=== PATIENT | male | born 1955 | race Hispanic/Latino ===

== ENCOUNTER 2018-11-05 07:57 | Day surgery (SDC) | payer OTHER ==
[~2018-11-05] VITALS: Ht 175.3 cm; Wt 127.0 kg
[~2018-11-05 07:57] MED LIST: SODIUM CHLORIDE 0.9% 1000ML 1,000 ML IV ONE
[2018-11-05 09:55] VITALS: BP 142/80
[2018-11-05] MEDS ORDERED: WARF7.5T49 PO (10:30)
[2018-11-05] MEDS ORDERED: ATOR40TA71 PO (10:30)
[2018-11-05] MEDS ORDERED: ASPI-1197 PO (10:30)
[2018-11-05] MEDS ORDERED: UBID100C10 PO (10:46)
[2018-11-05] MEDS ORDERED: AMLO10TA7 PO (10:46)
[2018-11-05] MEDS ORDERED: MAGN500C15 PO (10:46)
[2018-11-05] MEDS ORDERED: OMEGA 3 (10:46)
[2018-11-05] MEDS ORDERED: GLUCOSAMINE PO (10:46)
[2018-11-05] MEDS ORDERED: ERGO2000 PO (10:46)
[2018-11-05] MEDS ORDERED: TURM500C9 PO (10:46)
[2018-11-05] MEDS ORDERED: VITAMIN C PO (10:46)
[2018-11-05] MEDS ORDERED: METF-446 PO (10:46)
[2018-11-05] MEDS ORDERED: MULT1CAP32 PO (10:46)
[2018-11-05] MEDS ORDERED: OZEMPIC SQ (10:46)
[2018-11-05] MEDS ORDERED: LISI40TA4 PO (10:46)
[2018-11-05] MEDS ORDERED: CARV25TA PO (10:46)
[2018-11-05] MEDS ORDERED: POTA99TA21 PO (10:46)
[2018-11-05] MEDS ORDERED: PROPOFOL 10 MG/ML 20ML VIAL IV ONE (11:48)
[2018-11-05 12:15] VITALS: BP 120/80
[2018-11-05 12:20] VITALS: BP 137/83
--- NOTE | 2018-11-05 12:50 | NUR ---
INSTRUCTED PATIENT AND PATIENT'S DESIGNATED DIRECTOR OF STRATEGIC MARKETING TO RESUME WARFARIN TOMORROW. BOTH VERBALIZED UNDERSTANDING.
== END 2018-11-05 13:50 | disposition home or self-care (01) ==
LOC: ENDO 07:57 → DAH 07:57 → ENDO 13:50
PROVIDERS: ATTEND Internal Medicine
DX: K62.1 Rectal polyp (principal); K57.30 Diverticulosis of large intestine without perforation or abscess without bleeding; K64.0 First degree hemorrhoids; K21.0 Gastro-esophageal reflux disease with esophagitis; K31.89 Other diseases of stomach and duodenum; I10 Essential (primary) hypertension; I25.10 Atherosclerotic heart disease of native coronary artery without angina pectoris; I48.91 Unspecified atrial fibrillation; E78.5 Hyperlipidemia, unspecified; E11.9 Type 2 diabetes mellitus without complications; M19.90 Unspecified osteoarthritis, unspecified site; Z96.642 Presence of left artificial hip joint; Z79.84 Long term (current) use of oral hypoglycemic drugs; Z79.899 Other long term (current) drug therapy; Z98.890 Other specified postprocedural states; Z86.010 Personal history of colon polyps; Z79.82 Long term (current) use of aspirin; Z87.891 Personal history of nicotine dependence; Z72.89 Other problems related to lifestyle; Z82.49 Family history of ischemic heart disease and other diseases of the circulatory system; Z83.3 Family history of diabetes mellitus
CPT/HCPCS: 43239; 45380; 82948 ×2; A4606; J2704; J7030

== ENCOUNTER → 2023-08-05 | Outpatient (CLI) | payer OTHER ==
[~2023-08-05] MED LIST changes: +AMLO-258 PO; +ASPI-1197 PO; +ATOR40TA71 PO; +CARV25TA PO; +ERGO2000 PO; +GLUCOSAMINE PO; +LISI40TA9 PO; +MAGN500C4 PO; +METF-446 PO; +MULT1CAP32 PO; +OMEGA 3; +OZEMPIC SQ; +POTA99TA26 PO; -SODIUM CHLORIDE 0.9% 1000ML 1,000 ML IV ONE; +TURM500C9 PO; +UBID100C10 PO; +VITAMIN C PO; +WARF7.5T49 PO
== END | disposition home or self-care (01) ==
LOC: SHCH 14:58
PROVIDERS: ATTEND Internal Medicine Cardiovascular Disease
DX: I87.2 Venous insufficiency (chronic) (peripheral) (principal); I87.1 Compression of vein
CPT/HCPCS: 93970

== ENCOUNTER → 2024-03-14 | Outpatient (CLI) | payer OTHER ==
[~2024-03-14] MED LIST changes: +IOHEXOL 350 MG/ML 100ML INFUS..BTL IV ONE; +IOHEXOL-350 50ML VIAL IV ONE; +IOHEXOL-350 75 ML VIAL IV ONE; +metoPROLOL tartRATE 1 MG/ML 5ML VIAL IV ONE
== END | disposition home or self-care (01) ==
LOC: RAH 10:23
PROVIDERS: ATTEND Internal Medicine Cardiovascular Disease
DX: Z53.9 Procedure and treatment not carried out, unspecified reason (principal); R07.9 Chest pain, unspecified
CPT/HCPCS: J3490; Q9967

== ENCOUNTER → 2024-04-30 | Outpatient (CLI) | payer OTHER ==
[~2024-04-30] MED LIST changes: -IOHEXOL 350 MG/ML 100ML INFUS..BTL IV ONE; -IOHEXOL-350 50ML VIAL IV ONE; -IOHEXOL-350 75 ML VIAL IV ONE; -metoPROLOL tartRATE 1 MG/ML 5ML VIAL IV ONE
[2024-04-30] MEDS: REGADENOSON 0.4 MG/5 ML PF SYG IVP ONE (14:31)
--- NOTE | 2024-05-02 09:00 | HMCSR ---
APPROVED REPORT Height: 5 ft 9in Weight: 175 lbs TEST INDICATIONS UNSTABLE ANGINA The imaging protocol used to acquire images was Rest Tc-99m/stress Tc-99m 1 day Consent: The procedure was explained and understood by the patient. Informerd consent was witnessed Fatou Leavitt RN First, low dose rest was performed then high dose stress. RESTING DATA: The resting ekg shows: Atrial Fibrillation Rest SPECT myocardial perfusion imaging was performed in supine position 56 minutes following the int ravenous injection of 10.5 mCi of Tc-99 Sestamibi. Time of rest injection: 08:23: Date: 04/30/2024 Time of rest imagin:19: Date: 04/30/2024 PHARMACOLOGIC STRESS: Pharmacologic stress test was performed by injecting regadenoson 0.4 mg IV push followed by the intra venous injection of 32.1 mCi of Tc-99 Sestamibi. Time of stress injection: 09:57: Date: 04/30/2024 Time of stress imagin:56: Date: 04/30/2024 Heart Rate at time of stress injection: 62 bpm. Gated Stress SPECT was performed 59 minutes after stress injection. The images were gated to evaluate regional wall motion and calculate left ventricular ejection fracti on. STRESS DETAILS Reason for Termination: Infusion complete Stress Symptoms: Dyspnea Max HR Achieved: 72 bpm % of APMHR Achieved: 48 Max Blood Pressure: 129/77 mmHg Stress ECG: Atrial Fibrillation Study quality was good. Lung uptake was Normal. Artifact: increased GI uptake LEFT VENTRICLE Size: The left ventricular size is moderately dilated. Systolic Function:The left ventricular systolic function is normal. Wall Motion: Cannot assess regional wall motion abnormalities. The left ventricular ejection fraction was calculated to be 55%.TID = . LV PERFUSION There is a large size area of decreased radiotracer uptake involving the lateral wall inferolateral w all and inferior wall which is more prominent on the stress images compared to the rest images consis tent with ischemia Conclusion Abnormal myocardial perfusion scan for a large area of inferior and inferolateral wall ischemia of mo derate degree Preserved ejection fraction of 55% Moderate to high risk scan Clinical correlation recommended
== END | disposition home or self-care (01) ==
LOC: SHCH 08:01
PROVIDERS: ATTEND Internal Medicine Cardiovascular Disease
DX: I48.91 Unspecified atrial fibrillation (principal); I20.0 Unstable angina; R06.00 Dyspnea, unspecified
CPT/HCPCS: 78452; 93017; J2785; A9500 ×2

== ENCOUNTER 2024-06-24 07:24 | Day surgery (SDC) | payer OTHER ==
[2024-06-20 12:49] LABS: BASOPHILS # (AUTO) 0.01 K/uL (0.00-0.20); BASOPHILS % (AUTO) 0.2 % (0.0-5.0); EOSINOPHILS # (AUTO) 0.13 K/uL (0.00-0.70); EOSINOPHILS % (AUTO) 2.8 % (0.0-8.0); HEMATOCRIT 35.9 % (42-54); IMMATURE GRANULOCYTE ABSOLUTE 0.02 K/uL (0-1); LYMPHOCYTES # (AUTO) 0.9 K/uL (1.0-4.8); LYMPHOCYTES % (AUTO) 19.8 % (21.0-51.0); MEAN CORPUSCULAR HEMOGLOBIN 31.5 pg (27.0-33.0); MEAN CORPUSCULAR HGB CONC 34.5 g/dL (32.0-36.0); MEAN CORPUSCULAR VOLUME 91.1 fL (79-99); MONOCYTES # (AUTO) 0.5 K/uL (0.1-1.0); MONOCYTES % (AUTO) 10.9 % (3.0-13.0); NEUTROPHILS % (AUTO) 65.9 % (40.0-77.0); PLATELET COUNT (AUTO) 157 K/uL (130-400); RED BLOOD CELL COUNT(AUTO) 3.94 MIL/uL (4.50-6.20); RED CELL DISTRIBUTION WIDTH 15.2 % (11.0-15.5); WHITE BLOOD COUNT (AUTO) 4.6 K/uL (4.8-10.8)
[2024-06-20 12:55] LABS: CREATININE 0.9 mg/dL (0.5-1.3); POTASSIUM 4.3 mmol/L (3.5-5.1)
--- NOTE | 2024-06-20 12:57 | EKG ---
[facility] Test Date: 2024-06-20 Test Time: 12:42:41 Pat Name: ERNESTO CHACON Department: [facility] Room: Gender: M Cardiac Tech: [id number] : 1955 Requested By: NEAL WAGNER Order Number: [id number] Reading MD: José Miguel Guerrero Measurements Intervals [place] Rate: 61 P: 0 MD: 0 QRS: -56 QRSD: 112 T: 94 QT: 404 QTc: 407 Interpretive Statements Atrial fibrillation LAD, consider left anterior fascicular block Poor R wave progressionn Electronically Signed On 06-20-2024 14:53:41 CDT by José Miguel Guerrero Please click the below link to view image of tracing.
[2024-06-20 12:58] LABS: INR 1.06 (0.85-1.15); PROTHROMBIN TIME 11.2 SEC (9.6-11.6)
[2024-06-20 13:00] LABS: PARTIAL THROMBOPLASTIN TIME 26.2 SEC (26.3-35.5)
[2024-06-20 13:13] VITALS: BP 133/71; PULSE 68; RESP 20; TEMP 97.2
[2024-06-20 13:16] LABS: B-TYPE NATRIURETIC PEPTIDE 111 pg/mL (0-100)
--- NOTE | 2024-06-20 17:35 | HMCIMG ---
CHEST 1VW HISTORY: Preop COMPARISON: 10/05/2007 FINDINGS: A frontal projection of the chest was obtained. Mild bilateral pulmonary infiltrates are seen may be related to mild pulmonary vascular congestion with possible superimposed pneumonitis. Poststernotomy changes are seen. The heart is enlarged. Degenerative changes of the thoracolumbar spine are present. Degenerative changes are seen aortic calcifications are seen IMPRESSION: 1. Mild bilateral pulmonary infiltrates are seen may be related to mild pulmonary vascular congestion with possible superimposed pneumonitis.
--- NOTE | 2024-06-21 15:07 | NUR ---
REPORT REPORTED CXR TO [facility] NGUYEN. OK TO PROCEED
[2024-06-24] VITALS (10 sets, daily range): BP systolic 104–142; BP diastolic 52–74; PULSE 53–66; RESP 14–18; TEMP 97.2–97.3
[~2024-06-24] VITALS: Ht 175.3 cm; Wt 135.2 kg
[~2024-06-24 07:24] MED LIST changes: -AMLO-258 PO; +APIX5TAB PO; +ASCO100031 PO; -ASPI-1197 PO; +ATOR-2 PO; -ATOR40TA71 PO; +CALC-866 PO; +CARV12.511 PO; -CARV25TA PO; +CASCARA SAGRADA PO; +DAPA10TA PO; +DOXA2TAB2 PO; -ERGO2000 PO; +FURO40TA5 PO; +IRON PO; +LATA2.5D14 OP; -LISI40TA9 PO; -MAGN500C4 PO; +NITRIC OXIDE PO; +OMEG1CAP45 PO; -OMEGA 3; -POTA99TA26 PO; +SACU1TAB PO; +SPIR25TA6 PO; +TADA5TAB5 PO; -VITAMIN C PO; -WARF7.5T49 PO; +[UNRECOGNIZED DRUG - OTHER] PO
[2024-06-24] MEDS: 0.9%NACL 1000ML 1,000 ML IV SCH (08:11)
[2024-06-24] MEDS ORDERED: LIDOCAINE HCL 400MG/20ML VIAL ONE (10:44)
[2024-06-24] MEDS ORDERED: HEParin-NS 1,000 UNIT/500 ML 1,000 ML IV ONE (10:44)
[2024-06-24] MEDS ORDERED: IOHEXOL 350 MG/ML 100ML INFUS..BTL IV ONE ×2 (10:44→12:41)
[2024-06-24] MEDS ORDERED: HEParin 10,000 UNIT/10ML (1,000 UNIT/ML) VIAL ONE (10:44)
[2024-06-24] MEDS ORDERED: NITROGLYCERIN 50MG VIAL ONE (10:45)
[2024-06-24] MEDS ORDERED: FENTanyl CITRate PF 50 MCG/1 ML 2ML VIAL ONE ×2 (10:57→11:10)
[2024-06-24] MEDS ORDERED: MIDAZOLAM HCL 1 MG/ML 2ML VIAL ONE ×2 (10:57→11:10)
[2024-06-24] MEDS ORDERED: ATROPINE 1MG SYG IVP ONE (11:18)
[2024-06-24] MEDS ORDERED: BIVALIRUDIN 250 MG/VIAL IV ONE ×2 (11:20→12:26)
[2024-06-24] MEDS ORDERED: HEParin-NS 1,000 UNIT/500 ML 500 ML IV ONE (12:39)
--- NOTE | 2024-06-24 13:21 | PRN ---
PROCEDURES: 1. Right common femoral arterial sheath placement. 2. Selective coronary angiogram. 3. Saphenous vein graft cannulation x3 4. Left subclavian arteriogram with left internal mammary artery catheter placement and contrast and drip contrast injection and pressure measurement 5. Failed attempts at percutaneous coronary intervention to saphenous vein graft to diagonal branch 2. Secondary to inability to deliver angioplasty balloon INDICATION: [] Moderate risk scan for inferior and inferolateral ischemia DESCRIPTION OF PROCEDURE: The patient was brought to the catheterization suite and prepped and draped in sterile fashion. IV was started, and not already in place and both groins were exposed for arterial access. 1% lidocaine was used for local anesthesia and then a micropuncture kit was used to gain access once free-flowing blood was seen, modified Seldinger technique was utilized to place a 6 Irish sheath into the right common femoral artery. Next, preformed JL4 and JR 4 catheters were used to selectively engage the [place] coronary vessels and multiple hand contrast injections were performed in different views to define the coronary anatomy. The JR4 catheter was also used to selectively engage the saphenous vein graft to the RCA, SVG with jump graft to OMB 1. And OMB2. as well as SVG to the DB2. An IMT catheter was used to selectively engage the int ernal mammary artery. Contrast injections were performed. FINDINGS: The left main artery has no stenosis present and bifurcates into proximal occluded LAD and circumflex. Love-lad is noted to be patent. SVG-DB2 is patent but there are multiple degenerated portions of the proximal and mid graft at 75-85% with a haziness noted as well as a 95% stenosis noted of the SVG-DB 2. Anastomosis site The SVG jump graft off the aorta to OMB1 one and OMB2 is occluded at just after the takeoff of the aorta SVG-distal RCA is occluded off aorta The right coronary artery [place] vessel has not occlusion in its proximal segment but there was a large sinoatrial collateral branch that has providing collateral flow to what appears to be the RPL which was also providing collate ral flow to the [place] distal left circumflex and obtuse marginal branch system INTERVENTIONAL REPORT: After films were reviewed and compared to films from 2006 it was felt attempts should be made to revascularize multiple lesions within the SVG to dB 2 and therefore a six Irish JR4 guide catheter was then placed into the vein graft off the aorta. Next initially a run-through wire was placed in the distal ongoing vein graft into diagonal branch 2. In its distal segment initially I made an attempt to pass a balloon which was unsuccessful I then placed a guide liner in place for support and again was unsuccessful in crossing the balloon even in the proximal segment of vein graft. I then used a fine cross catheter and replaced the run-through wire were then iron man wire for more support and the balloon would not cross even once again the proximal segment of this severely diseased 28-year-old graft. After multiple attempts were made we assessed contrast exposure as well as radiation exposure and it was felt to terminate intervention and to consider evaluation with CT surgery for more extensive revascularization involving possibly a HARJINDER-RCA, repeat vein grafts or radial artery graft to circumflex system and diagonal branch system. RECOMMENDATIONS: CT surgery consultation was an outpatient to consider HARJINDER-RCA, radial artery graft bypass or saphenous vein graft to diagonal branch and circumflex system NEAL WAGNER MD Jun 24, 2024 13:21
[2024-06-24] MEDS ORDERED: GLUCAGON 1MG KIT 1 MG ML IM PRN (13:30)
[2024-06-24] MEDS ORDERED: DEXTROSE 50%-WATER 50 ML DISP.SYRIN IV PRN (13:30)
[2024-06-24] MEDS ORDERED: metoPROLOL tartRATE 1 MG/ML 5ML VIAL IV PRN (13:30)
[2024-06-24] MEDS ORDERED: NITROGLYCERIN 0.4 MG SL TAB SL PRN (13:30)
--- NOTE | 2024-06-24 13:30 | NUR ---
PT VOIDED CLEAR YELLOW URINE 800 ML
[2024-06-24] MEDS ORDERED: INSULIN humuLIN R 100 UNIT/ML 3ML SQ SCH (16:30)
== END 2024-06-24 16:15 | disposition home or self-care (01) ==
LOC: DAH 07:24
PROVIDERS: ATTEND Internal Medicine Cardiovascular Disease
DX: I25.710 Atherosclerosis of autologous vein coronary artery bypass graft(s) with unstable angina pectoris (principal); I25.110 Atherosclerotic heart disease of native coronary artery with unstable angina pectoris; I25.84 Coronary atherosclerosis due to calcified coronary lesion; I87.1 Compression of vein; I48.91 Unspecified atrial fibrillation; I48.92 Unspecified atrial flutter; R94.39 Abnormal result of other cardiovascular function study; R07.9 Chest pain, unspecified; I10 Essential (primary) hypertension; E78.5 Hyperlipidemia, unspecified; I73.9 Peripheral vascular disease, unspecified; E11.9 Type 2 diabetes mellitus without complications; E66.01 Morbid (severe) obesity due to excess calories; Z86.2 Personal history of diseases of the blood and blood-forming organs and certain disorders involving the immune mechanism; Z98.890 Other specified postprocedural states; Z83.3 Family history of diabetes mellitus; Z82.49 Family history of ischemic heart disease and other diseases of the circulatory system; Z68.41 Body mass index [BMI] 40.0-44.9, adult; Z95.1 Presence of aortocoronary bypass graft; Z79.899 Other long term (current) drug therapy; Z79.84 Long term (current) use of oral hypoglycemic drugs
CPT/HCPCS: 80048; 83880; 85025; 85610; 85730; 36415; 71045; 93005; 92937; 93455; 82948 ×2; Q9965 ×2; C1769 ×3; C1887 ×3; C1894 ×2; C1725; C1760; J3010; J3490 ×2; J2250; J1644 ×2; J0583 ×2; Q9967; A4215; A4222; A4221; A4663; A4216; A4606; A4223 ×3; 93454; 99156; 99157; J0461